=== PATIENT | female | born 1930 | race Caucasian/White ===

== ENCOUNTER 2016-11-12 17:32 | Inpatient (IN) | payer MEDICARE, MEDICAID ==
[~2016-11-12] VITALS: Ht 152.4 cm; Wt 56.5 kg
[~2016-11-12 17:32] MED LIST: ARICEPT5 MG PO; ATIVAN0.5 MG PO; BOUDREAUXS113 GM TP; BUSPAR10 MG PO; CATAPRES TTS-20.2 MG TD; CIPRO500 MG PO; DURAGESIC1 PATCH .4; EFFEXOR75 MG PO; FLUTICASONE PRO16 GM NS; LIDODERM 5 %1 PATCH TD; LISINOPRIL10 MG PO; MIRALAX17 GM PO; PRILOSEC20 MG PO; PRINIVIL20 MG PO; PROTONIX40 MG PO; REMERON15 MG PO; STOOL SOFTENER100 MG PO; ULTRAM50 MG PO; UNITHROID112 MCG PO
--- NOTE | 2016-11-12 19:39 | NUR ---
PATIENT ADMITTED FROM [facility] WITH INCREASED CONFUSION, PARANOIA,AND DELUSIONS. SHE STATED, " THERE IS A DRUG-BUST GOING ON UNDER MY ROOM. MY ROOMMATES IS A [facility] LEADER OF THE [employer]. " SHE STATED TO THEIR CREDIT UNION EXAMINER, " I WANT TO . IF I HAD A KNIFE, I MIGHT WOULD DO IT." NO PLAN. SHE ARRIVED VIA VAN. FALL PRECAUTIONS INITIATED. WILL CONT POC.
[2016-11-12] MEDS ORDERED: LEXAPRO20 MG PO (19:46)
[2016-11-12] MEDS ORDERED: NEURONTIN 300300 MG PO (19:47)
[2016-11-12] MEDS ORDERED: ACETAMINOPHEN500 M1 PO (19:59)
[2016-11-12] MEDS ORDERED: ICY HOT (20:03)
[2016-11-12] MEDS ORDERED: MELATONIN 3 MG1 TAB PO (20:08)
[2016-11-12] MEDS ORDERED: ATIVAN0.5 MG PO (20:08)
[2016-11-12] MEDS ORDERED: OMEPRAZOLE20 M1 PO (20:10)
[2016-11-12] MEDS ORDERED: MUCINEX DM ER1 EAC1 PO (20:12)
[2016-11-12] MEDS ORDERED: LOPERAMIDE HCL2 MG PO (20:15)
[2016-11-12] MEDS ORDERED: MIRALAX17 GM PO (20:16)
[2016-11-12] MEDS ORDERED: TUMS500 MG PO (20:17)
[2016-11-12 21:45] LABS: APPEARANCE CLEAR (CLEAR); BILIRUBIN NEGATIVE (NEGATIVE); COLOR YELLOW (YELLOW); GLUCOSE NEGATIVE (NEGATIVE); KETONE NEGATIVE (NEGATIVE); LEUKOCYTE ESTERASE NEGATIVE (NEGATIVE); NITRITE NEGATIVE (NEGATIVE); PROTEIN TRACE mg/dL (NEGATIVE); UROBILINOGEN NORMAL (NORMAL)
--- NOTE | 2016-11-12 23:09 | NUR ---
RECIEVED IN DAY ROOM. DIFFICULTY EXPRESSING SELF VERBALLY. CALM AND COOPERATIVE WITH CARE AND ASSESSMENT. NO DELUSIONAL STATEMENTS MADE. REDIRECT AND REORIENT NEEDED. RESTING IN BED WITH EYES CLOSED. CONTINUE PLAN OF CARE.
[2016-11-13 06:17] VITALS: BP 146/36; BMI 21.6
[2016-11-13 07:42] LABS: BASOPHILS 0.2 % (0-2); EOSINOPHILS 2.8 % (0-7); HEMATOCRIT 30.4 % (36.0-48.0); HEMOGLOBIN 9.2 g/dL (12-16); IMMATURE GRANULOCYTES 0.2 % (0-5); LYMPHOCYTES 29.2 % (15-50); MCH 27.5 pg (26.0-34.0); MCHC 30.3 g/dL (31.0-37.0); MEAN PLATELET VOLUME 9.7 fL (7.4-10.4); MONOCYTES 9.9 % (2-11); NEUTROPHILS 57.7 % (40-80); PLATELET COUNT 250 10x3/uL (130-400); RBC 3.34 10x6/uL (4.00-5.40); RDW 14.2 % (11.5-14.5)
[2016-11-13 07:46] LABS: HEMOGLOBIN A1C 5.1 % (4.8-6.0)
[2016-11-13 08:23] LABS: ALBUMIN 3.3 g/dL (3.4-5.0); ANION GAP 6.6 mmol/L (8-16); BILIRUBIN - TOTAL 0.28 mg/dL (0.2-1.3); CALCIUM 8.1 mg/dL (8.5-10.1); CARBON DIOXIDE 37.5 mmol/L (21.0-32.0); CHOL - HDL RATIO 2.3 ratio (2.3-4.1); CREATININE - SERUM 0.9 mg/dL (0.6-1.3); LDL-HDL RATIO 1.1 ratio (1.5-3.5); POTASSIUM - SERUM 4.1 mmol/L (3.5-5.1); PROTEIN - SERUM 6.8 g/dL (6.4-8.2); THYROID STIMULATING HORMONE 1.36 uIU/mL (0.36-3.74)
[2016-11-13 09:21] VITALS: BP 197/53
[2016-11-13 09:52] VITALS: BMI 21.6
--- NOTE | 2016-11-13 10:00 | NUR ---
B) ALERT AND ORIENTED X 2. CALM AND COOPERATIVE, CONTRACTS FOR NO SELF-HARM, NO DELUSIONS TODAY. I) ADMINISTERED PRESCRIBED MEDICATIONS, SELF PROPELS IN WHEELCHAIR. R) MEDICATION COMPLIANT, VSS ASSESSMENT COMPLETED. MONITOR FOR CHANGES AND SAFETY. CONTINUE WITH PLAN CARE.
[2016-11-13 20:00] VITALS: BP 167/39
--- NOTE | 2016-11-13 20:27 | NUR ---
RECEIVED IN DAYROOM. SITTING AT TABLE WITH STAFF. SOCIALIZING AT TIMES. CALM AND COOPERATIVE WITH CARE AND ASSESSMENTS. DENIES THOUGHTS OF SELF HARM. ENCOURAGE TO EXPRESS NEEDS. STTING IN HALLWAY WITH PEERS. CONTINUE PLAN OF CARE
[2016-11-14 08:19] LABS: RAPID PLASMA REAGIN Non Reactive (Non Reactive)
[2016-11-14 09:16] LABS: VITAMIN D 25 HYDROXY 12.1 ng/mL (30.0-100.0)
[2016-11-14 09:23] VITALS: BP 120/50
--- NOTE | 2016-11-14 13:05 | NUR ---
B) PATIENT IS AWAKE AND ALERT, SHE IS GAMBELL, SHE WEARS A HEARING AID, SHE SELF PROPELS IN HER W/C IF STAFF HELPS HER WITH THE OXYGEN. PATIENT IS SOMEWHAT DEMANDING AND ASKS FOR CERTAIN THINGS AND IF ONE STAFF DOESN'T DO SOMETHING SHE ASKS ANOTHER ONE. PATIENT IS CONFUSED, SHE DOESN'T KNOW THE TIME OR THE PLACE. I) PROVIDE PRESCRIBED MEDS. R) PATIENT IS COMPLIANT WITH MEDS AND UNIT MILIEU. P) CONTINUE POC.
[2016-11-14 20:00] VITALS: BP 153/73
--- NOTE | 2016-11-15 02:21 | NUR ---
B) Patient is alert and oriented to self, impatient and demanding at times, self propel in wheelchair, I) Administered scheduled medications redirected as needed, monitored for safety. R) Medication compliant, confused and unaware of surroundings. P) Continue plan of care.
[2016-11-15 10:41] VITALS: BP 140/50
--- NOTE | 2016-11-15 11:58 | NUR ---
B) PATIENT IS AWAKE AND ALERT, SHE SAYS SHE IS FEELING "DRUNK" DID GO OVER ALL OF HER MEDS WITH HER, DID HOLD LISINIPRIL HER BP IS LOW THIS AM. SHE IS ON O2 AT 2 AND SHE IS SAYING THE TOLD ME NOT TO WALK, BUT SHE NEEDS TO WALK. I) PROVIDE PRESCRIBED MEDS. R) PATIENT IS COMPLIANT WITH MEDS. P) CONTINUE POC.
--- NOTE | 2016-11-15 13:02 | NUR ---
RD note follow up Chart reviewed. tolerating regular diet with fair to good po, has ensure. No problems noted at this time. RD to continue to follow.
[2016-11-15 20:02] VITALS: BP 171/36
--- NOTE | 2016-11-16 03:18 | NUR ---
B) Patient is alert and oriented to self and hospital, restless at times, ambulates holding wheelchair od self propels in wheelchair, I) Administered scheduled medications, resdirected as needed, R) Medication compliant, cooperative with care and assessment P) Continue plan of care.
[2016-11-16 08:31] VITALS: BP 179/39
--- NOTE | 2016-11-16 08:31 | NUR ---
LATE ENTRY FROM 11/15 SW MET WITH PT'S DTR, CHIO, TO DISCUSS DISEASE PROGRESSION AND DISCHARGE PLANNING. PT'S DTR VERBALIZED UNDERSTANDING OF PT'S CONDITION.
[2016-11-16 09:17] LABS: FOLATE (FOLIC ACID) - SERUM 12.3 ng/mL (>3.0)
--- NOTE | 2016-11-16 10:29 | NUR ---
B) PATIENT IS AWAKE AND ALERT, SHE DID HAVE STAFF TURN HER HEARING AID UP. PATIENT IS ORIENTED TO SELF, SHE HAS NOT BEEN DEMANDING OR ACCUSATORY THIS AM. SHE AMBULATES INDEPENDENTLY WITH A WALKER, BUT SHE IS SITTING IN A W/C AT THIS TIME, O2 IS ON 2L/M PER N/C. I) PROVIDE PRESCRIBED MEDS. R) PATIENT IS COMPLIANT WITH MEDS AND UNIT MILIEU. P) CONTINUE POC.
--- NOTE | 2016-11-16 13:57 | NUR ---
PATIENT CALLED THIS NURSE OVER AND SAID "DR. JIM'S HELPER SAID TO TAKE THIS OXYGEN TANK OFF THE BACK OF THIS CHAIR BECAUSE I HAVE A BAD BACK" I SAT IN THE CHAIR AND THERE WAS NO PRESSURE TO MY BACK AND DR. MACIEL DID NOT TELL HER THAT WE NEEDED TO TAKE THE TANK OFF. ONCE I SAT IN THE CHAIR AND EXPLAINED SHE SAID "OK, IF YOU SAY SO"
[2016-11-16 19:30] VITALS: BP 187/46
--- NOTE | 2016-11-17 03:38 | NUR ---
B) patient is alert and oriented to self and being in a hospital, demanding at times, impatient, I) Administered scheduled medications, monitored for safety, redirected as needed, R) Medication compliant, wanting to go to bed, difficult at times, P) Continue plan of care.
--- NOTE | 2016-11-17 07:58 | NUR ---
B) PATIENT IS AWAKE AND ALERT, SHE IS ON O2 AT 2L/M PER N/C SHE IS DELUSIONAL THIS AM, MAKING STATEMENTS TO OTHER PATIENTS ABOUT HOW "THEY ARE STEALING FROM HER" CAN NOT FOLLOW HER CONVERSATION AT TIMES. PATIENT SELF PROPELS IN A W/C AND SHE CAN AMBULATE WITH A WALKER. I) PROVIDE PRESCRIBED MEDS. R) PATIENT IS COMPLIANT WITH MEDS AND SHE PARTICIPATES IN GROUPS AND ACTIVITIES AT TIMES, BUT SHE CAN BE RUDE AT TIMES. SHE WANTS HER WAY IMMEDIATELY, SHE GETS UPSET IF SHE HAS TO WAIT AND BE PATIENT. P) CONTINUE POC.
[2016-11-17 08:00] VITALS: BP 171/41
--- NOTE | 2016-11-17 08:37 | NUR ---
HELD LISINIPRIL D/T LOW BP THIS AM.
[2016-11-17 19:30] VITALS: BP 184/57
--- NOTE | 2016-11-18 02:09 | NUR ---
B) Patient is alert and oriented to self and being in a hospital, rude and impatient at times, I) Administered scheduled medications, redirected as needed, monitored for falls, R) Medication compliant, resting in bed P) Continue plan of care.
--- NOTE | 2016-11-18 06:30 | NUR ---
AT 0100 PATIENT SLID INTO FLOOR TRYING TO GO TO THE BATHROOM, SHE STATED THAT SHE HIT HER LEFT ELBOW AND LEFT HIP, ALARM ON BED, PATIENT ASSISTED TO RESTROOM AND NEURO CHECKS STARTED, 1 CM SKIN TEAR NOTED TO LEFT ELBOW, AND LUMP ON HEAD, PATIENT STATED THAT THE LUMP ON HER HEAD WAS ALREADY THERE, PATIENT ALERT AND RESPONDING TO QUESTIONS, WILL CONTINUE TO MONITOR.
[2016-11-18 07:47] VITALS: BP 122/60
--- NOTE | 2016-11-18 08:24 | NUR ---
DAUGHTER "CHIO",INFORMED OF FALL THAT OCCURED LAST NIGHT WITH NO INJURIES.DAUGHTER STATED SHE APPRECIATED CALL AND NOT BEING WOKE UP IN MIDDLE OF NIGHT.
[2016-11-18 12:12] VITALS: Ht 152.4 cm; Wt 56.5 kg
--- NOTE | 2016-11-18 12:32 | NUR ---
NEUROCHECKS ARE BEING DONE DUE TO FALL ON PREVIOUS SHIFT. PT DENIES ANY PAIN AT THIS TIME. SMALL SKIN TEAR NOTED TO LEFT ELBOW NO BLEEDING NOTED. EDUCATED PT ON NOT GETTING UP WITHOUT ASSISTANCE. VERBALIZED UNDERSTANDING. PT IS ON 2 LITERS NC. PT IS LETHARGIC DUE TO POOR SLEEPING BUT SHE EASILY AWAKENS. NO AGGRESSION NOTED. PT TURNS OFF ALARM AND WAS EDUCATED NOT TO DO THIS. FALL PRECAUTIONS MAINTAINED. WILL CONTINUE TO MONITOR AND CONTINUE WITH PLAN OF CARE.
[2016-11-18 19:30] VITALS: BP 166/50
--- NOTE | 2016-11-18 20:33 | NUR ---
RECEIVED IN DAYROOM. SITTING IN WHEELCHAIR WITH PEERS AT HER SIDE. SOCIALIZING AT TIMES. CALM AND COOPERATIVE WITH CARE AND ASSESSMENTS. DENIES THOUGHTS OF SELF HARM. ENCOURAGE TO EXPRESS NEEDS. CONTINUES TO SIT CALMLY. CONTINUE PLAN OF CARE
[2016-11-19 08:40] VITALS: BP 140/50
--- NOTE | 2016-11-19 12:55 | NUR ---
Alert and oriented to name, place and some what to situation. Calm and cooperative this am with no suicidial ideations. Cooperative and compliant with medications. Monitor for any suicidial ideations and maintain safety. Continue plan of care.
[2016-11-19 19:53] VITALS: BP 158/49
--- NOTE | 2016-11-19 20:10 | NUR ---
RECEIVED IN DAYROOM. SITTING IN A RECLINER WITH PEERS BY HER SIDE. SOCIALIZING AT TIMES. CALM AND COOPERATIVE WITH CARE AND ASSESSMENTS. DENIES THOUGHTS OF SELF HARM. ENCOURAGE TO EXPRESS NEEDS. CONTINUES TO REST QUIETLY IN RECLINER. CONTINUE PLAN OF CARE
--- NOTE | 2016-11-20 03:31 | PSY ---
PATIENT NAME:YA POWERS MEDICAL RECORD: [id number] : [birth year] LOCATION:[facility] ADMISSION DATE: 11/12/16 ACCOUNT: [id number] PSYCHIATRIC EVALUATION DATE OF EVALUATION: 11/13/16 Initial Psychiatric Workup IDENTIFYING DATA: This is an 86-year-old white female, who was accepted on transfer from [place]. HISTORY OF PRESENT ILLNESS: This patient has a well-established diagnosis of Alzheimer dementia. She also has a past history of major depressive disorder and generalized anxiety disorder. The patient was brought in because she was becoming increasingly paranoid and was making suicidal statements. She stated that she did not want to live under the circumstances that she was in. She also exhibits florid paranoid delusions. She states that she is staying in a home where a man in the home is the head of a drug cartel. She states that "something is about to go down." Aside from this, the patient cannot give a very coherent history. PAST PSYCHIATRIC HISTORY: The patient has had dementia for a number of years for a long period of time. She was housed at [facility] in [place]. She was transferred to [facility], but then later transferred back to [place]. It is unclear exactly where she is staying at this point. Because of suicidal statements as well as psychosis, the patient is admitted. PAST MEDICAL HISTORY: Significant for hypertension, hypothyroidism, gastroesophageal reflux disease, chronic back pain and insomnia. FAMILY HISTORY: Noncontributory. SOCIAL HISTORY: The patient is a . She has a daughter, who is very involved in her care. ALLERGIES: INCLUDE CODEINE, SERTRALINE, PAROXETINE AND CYMBALTA. REVIEW OF SYSTEMS: The patient complains of fatigue and difficulty sleeping. MENTAL STATUS: On interview, the patient does recognize the examiner from previous contact. However, she has obvious memory deficits. Mood is anxious. Affect is somewhat brittle. Speech is initially fluent, but becomes very tangential and rambling as the interview progresses. Flow of thought likewise becomes looser as the interview progresses. Thought content is positive for both suicidal ideation and paranoid delusional ideation. The patient is oriented to person and the fact that she is in a hospital in [place]. She is not oriented as to time. Remote memory shows deficits. Intermediate and short-term recall shows severe deficits. Concentration is quite poor. 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 AXIS II: No diagnosis. AXIS III: Hypertension, gastroesophageal reflux disease and hypothyroidism. AXIS IV: Severe. AXIS V: 34. PLAN: 1. The patient is admitted for further medical and psychiatric workup. 2. Diet and activities as tolerated. 3. We will assist family regarding aftercare. TRANSINT:[id number] Voice Confirmation ID: [id number] DOCUMENT ID: [id number] CEFERINO JIM III, MD at 0331 CC: [id number] DICTATION DATE: 11/13/16 1224 QUARTZ ORIENTATOR: 11/13/16 1237 ADM IN [facility] [address] [id number]
--- NOTE | 2016-11-20 03:31 | PN ---
PATIENT:YA POWERS MEDICAL RECORD: [id number] LOCATION:[facility] ADMISSION DATE: 11/12/16 PROGRESS NOTE DATE OF SERVICE: 11/14/2016 SUBJECTIVE: The patient complains of difficulty getting to sleep at night. On exam, the patient is cooperative, but is slightly anxious. She states that she simply does not feel well because she did not sleep well. Staff, however, report that she has been cooperative and pleasant. On exam, as mentioned, mood is slightly irritable. Affect is rather constricted. Speech is fairly fluent, although there are occasional word finding pauses. Content of thought continues to show some mild delusional ideation. Sensorium shows no change. ASSESSMENT: No change in diagnoses. PLAN: 1. We will maintain current medications for now. 2. Continue supportive therapy. TRANSINT:[id number] Voice Confirmation ID: [id number] DOCUMENT ID: [id number] CEFERINO JIM III, MD at 0331 CC: [id number] DICTATION DATE: 11/14/16 1141 LEATHER COLORER: 11/14/16 1239 ADM IN [address] [address] [id number] [place] [id number]
--- NOTE | 2016-11-20 03:31 | PN ---
PATIENT:YA POWERS MEDICAL RECORD: [id number] LOCATION:[facility] ADMISSION DATE: 11/12/16 PROGRESS NOTE DATE OF SERVICE: 11/15/2016 SUBJECTIVE: The patient complains of drowsiness. OBJECTIVE: The patient has been doing well. She has been cooperative. She has not shown overt psychosis. On exam, mood is slightly anxious. Affect is shallow. Speech is fluent. Content of thought focuses on somatic concerns. Sensorium is unchanged. ASSESSMENT: No change in diagnosis. PLAN: 1. Reduce Risperdal to 0.125 mg at bedtime. 2. Continue other medications. 3. Continue supportive therapy. TRANSINT:[id number] Voice Confirmation ID: [id number] DOCUMENT ID: [id number] CEFERINO JIM III, MD at 0331 CC: [id number] DICTATION DATE: 11/15/16 1215 BI SPECIALIST: 11/15/16 1235 ADM IN [id number] [place] [address]
--- NOTE | 2016-11-20 03:31 | PN ---
PATIENT:YA POWERS MEDICAL RECORD: [id number] LOCATION:[facility] ADMISSION DATE: 11/12/16 PROGRESS NOTE DATE OF SERVICE: 11/19/2016 SUBJECTIVE: The patient complains of sciatica in the left leg. OBJECTIVE: Staff reports that over the weekend, the patient was hypotensive. She stated she simply did not feel good. Today, she is somewhat more alert and more normotensive. On exam, mood is for the most part pleasant, occasionally slightly anxious. Affect is bland. Speech is slow in rate and low in volume, but otherwise fluent. Content of thought focuses on somatic concerns. There is no suicidal ideation. Sensorium is unchanged. ASSESSMENT: No change in diagnosis. PLAN: 1. Discontinue Risperdal. 2. Continue all other medications. 3. Continue supportive therapy. TRANSINT:[id number] Voice Confirmation ID: [id number] DOCUMENT ID: [id number] CEFERINO JIM III, MD at 0331 CC: [id number] DICTATION DATE: 11/19/16 1149 FILTRATION SUPERVISOR: 11/19/16 1203 ADM IN [id number] [place] [address]
[2016-11-20 07:00] VITALS: BP 170/54
--- NOTE | 2016-11-20 08:49 | NUR ---
B) PATIENT IS AWAKE AND ALERT, SHE HAS NOT HAD ANY DELUSIONS THIS AM, SHE IS SITTING IN THE W/C AND SELF PROPELS. SHE IS CALM THIS AM, NO ACCUSATIONS NOTED. PATIENT DOES WEAR OXYGEN. I) PROVIDE PRESCRIBED MEDS. R) PATIENT IS COMPLIANT WITH MEDS. P) CONTINUE POC.
--- NOTE | 2016-11-20 13:38 | PN ---
PATIENT:YA POWERS MEDICAL RECORD: [id number] LOCATION:[facility] ADMISSION DATE: 11/12/16 PROGRESS NOTE DATE OF SERVICE: 11/16/2016 SUBJECTIVE: The patient's case was discussed with the staff. She has no new complaint. OBJECTIVE: The patient denies intent to harm herself or others. She generally tolerates her medicines well. She has been participating in treatment, but continues to have some paranoid delusional thoughts. ASSESSMENT: No change in diagnoses. PLAN: Brief supportive and educational interventions were made. Current medicines were reviewed. TRANSINT:[id number] Voice Confirmation ID: [id number] DOCUMENT ID: [id number] WILMAN MACIEL MD at 1338 CC: [id number] DICTATION DATE: 11/16/16 1243 RURAL CARRIER: 11/16/16 1406 ADM IN [id number] [place] [address]
[2016-11-20 20:01] VITALS: BP 154/45
--- NOTE | 2016-11-20 20:13 | NUR ---
Received in dayroom. Sitting in reclining chair. Watching tv. Calm and cooperative with care and assessments. Denies thoughts of self harm. Encourage to express needs. Transfere to bedroom area at this time. Continue plan of care
[2016-11-21 08:00] VITALS: BP 165/48
--- NOTE | 2016-11-21 09:00 | NUR ---
Received pt in dining room for b'fast, appetite fair, alert, cooperative, quiet, calm. Meds admin per orders. Group therapy provided. No s/s adverse reaction to medications. Participates in group when cued. Cont POC including meds and group therapy.
--- NOTE | 2016-11-21 10:21 | PN ---
PATIENT:YA POWERS MEDICAL RECORD: [id number] LOCATION:[facility] ADMISSION DATE: 11/12/16 PROGRESS NOTE DATE OF SERVICE: 11/20/2016 SUBJECTIVE: No new complaint. OBJECTIVE: The patient has been fairly cooperative. She is tolerating medication changes well, although staff reports some mild paranoid ideation. On exam, mood is very slightly anxious. Affect is bland. Speech is low in volume and somewhat slow in production and rate. Content of thought as noted above. Sensorium unchanged. ASSESSMENT: No change in diagnosis. PLAN: 1. Perphenazine 2 mg q.h.s. 2. Continue all other medications. 3. Continue supportive therapy. TRANSINT:[id number] Voice Confirmation ID: [id number] DOCUMENT ID: [id number] CEFERINO JIM III, MD at 1021 CC: [id number] DICTATION DATE: 11/20/16 1101 BLAST FURNACE BLOWER: 11/20/16 1200 ADM IN [id number] [place] [address]
[2016-11-21] MEDS ORDERED: NORVASC5 MG PO (11:00)
[2016-11-21] MEDS ORDERED: NAMENDA5 MG PO (11:01)
[2016-11-21] MEDS ORDERED: PERPHENAZINE2 MG PO (11:01)
[2016-11-21] MEDS ORDERED: VITAMIN D5000 UNIT PO (11:02)
--- NOTE | 2016-11-21 14:20 | NUR ---
RD f/u note Chart reviewed including meds/notes/labs. Fiar intake of 46% average, on ensure at breakfast and dinner. noted to have skin tear/scabs. No changes at this time. Will continue to follow. Continue to send current diet, diet supplements. continue with plan of care.
[2016-11-21 20:51] VITALS: BP 175/34
--- NOTE | 2016-11-21 21:49 | NUR ---
RECEIVED IN BEDROOM. LAYING IN BED WITH EYES CLOSED. RESPONDS TO VOICE. CALM AND COOOPERATIVE WITH CARE AND ASSESSMENT. DENIES THOUGHTS OF SELF HARM. ENCOURAGE TO EXPRESS NEEDS. RESTING IN BED WITH EYES CLOSED AT THIS TIME. CONTINUE PLAN OF CARE.
--- NOTE | 2016-11-22 09:00 | NUR ---
B) PATIENT IS AWAKE AND ALERT, BUT ORIENTED TO SELF ONLY. SHE IS ABLE TO AMBULATE ON HER OWN WITH A WALKER. SHE HAS NOT MADE ANY DELUSIONAL STATEMENTS TODAY. I) PROVIDE PRESCRIBED MEDS. R) PATIENT IS COMPLIANT WITH MEDS. P) CONTINUE POC.
--- NOTE | 2016-11-22 10:19 | PN ---
PATIENT:YA POWERS MEDICAL RECORD: [id number] LOCATION:[facility] ADMISSION DATE: 11/12/16 PROGRESS NOTE DATE OF SERVICE: 11/21/2016 SUBJECTIVE: No new complaint. OBJECTIVE: The patient is tolerating medications well. No significant change. We have scheduled for discharge tomorrow. On exam, mood is euthymic. Affect is really constricted. Speech is low in volume. Content of thought focuses only on somatic concerns. Sensorium is unchanged. ASSESSMENT: No change in diagnoses. PLAN: 1. Maintain all current medication. 2. Continue supportive therapy. TRANSINT:[id number] Voice Confirmation ID: [id number] DOCUMENT ID: [id number] CEFERINO JIM III, MD at 1019 CC: [id number] DICTATION DATE: 11/21/16 1123 NAIL ARTIST: 11/21/16 1318 ADM IN [address] [address] [id number] [place] [id number]
--- NOTE | 2016-11-22 10:45 | NUR ---
PATIENT D/C'D FROM [facility], [facility] IS HERE NOW, ALL BELONGINGS ACCOUNTED.
--- NOTE | 2016-11-22 11:30 | NUR ---
REPORT CALLED TO VLADIMIR AT [facility].
--- NOTE | 2016-11-23 05:14 | DS ---
PATIENT:YA POWERS :[birth year] MEDICAL RECORD: [id number] DISCHARGE SUMMARY ADMISSION DATE: 11/12/16 DISCHARGE DATE: 11/22/16 DATE OF ADMISSION: 11/12/2016 DATE OF DISCHARGE: 11/22/2016 HISTORY: An 86-year-old white female accepted on transfer from [facility] in [place]. The patient had a preexisting diagnosis of Alzheimer dementia and had developed significant depressive symptoms. Recently, she had also exhibited severe paranoia and had been making some suicidal statements because of the worsening paranoid delusional ideation as well as suicidal statements. The patient was admitted for further details. Please see previously dictated history. COURSE IN THE HOSPITAL: The patient was seen in consultation by Dr. Suazo, who noted the following comorbidities, hypertension, hypothyroidism, osteoarthritis, vitamin D deficiency, and chronic back pain. It was elected to manage the patient conservatively. She was given perphenazine 2 mg at bedtime for control of her paranoid ideation. She was placed on Namenda 5 mg twice a day for her dementia. She was kept on her routine nonpsychiatric medications including Norvasc 10 mg daily, Catapres TTS patch 0.1 mg transdermal daily, p.r.n. tramadol for pain, vitamin D supplements, Protonix 40 mg daily for GERD, Flonase inhaler, Lexapro 20 mg daily for depressive symptoms, Synthroid 112 mcg daily, Ativan 1 mg at bedtime. Over the course of the hospitalization, the patient showed improvement. Affect did improve. Communication was difficult because of her hearing loss. However, her affect as mentioned became more pleasant. No further overt psychosis was noted. The patient was not making suicidal references or statements by the time of discharge. FINAL DIAGNOSES: AXIS I: Alzheimer dementia, secondary depression. AXIS II: No diagnosis. AXIS III: Hypertension, gastroesophageal reflux disease, hypothyroidism, vitamin D deficiency, osteoarthritis. AXIS IV: Moderate. AXIS V: 40. PLAN: 1. The patient is discharged on current medication. 2. Diet and activities as tolerated. 3. [facility]. TRANSINT:[id number] Voice Confirmation ID: [id number] DOCUMENT ID: [id number] DISCHARGE SUMMARY REPORT [id number] YA POWERS III, CEFERINO Friend MD at 0514 CC: [id number] DICTATION DATE: 11/22/16 1117 TEACHERS' AIDE: 11/22/16 1323 DIS IN 11/22/16 [facility] [address] [id number]
== END 2016-11-22 11:45 | DRG 57 ==
LOC: D.PSYCH 17:32
PROVIDERS: ADMIT Psychiatry & Neurology Psychiatry
DX: G30.9 Alzheimer's disease, unspecified (principal); F02.81 Dementia in other diseases classified elsewhere, unspecified severity, with behavioral disturbance; F32.9 Major depressive disorder, single episode, unspecified; I10 Essential (primary) hypertension; K21.9 Gastro-esophageal reflux disease without esophagitis; M19.90 Unspecified osteoarthritis, unspecified site; E53.8 Deficiency of other specified B group vitamins; E55.9 Vitamin D deficiency, unspecified; E03.9 Hypothyroidism, unspecified; D64.9 Anemia, unspecified; K59.00 Constipation, unspecified